=== PATIENT | female | born 1995 | race Caucasian/White ===

== ENCOUNTER 2020-09-29 10:22 | Emergency (ER) | payer OTHER ==
[~2020-09-29] VITALS: Ht 160 cm; Wt 80.3 kg
[2020-09-29 10:26] VITALS: BP 132/72
--- NOTE | 2020-09-29 10:29 | NUR ---
Pt ambulated to bed 6.
== END 2020-09-29 11:27 | disposition home or self-care (01) ==
LOC: MED 10:22
DX: R20.2 Paresthesia of skin (principal); M79.601 Pain in right arm; Z88.0 Allergy status to penicillin
CPT/HCPCS: 99282

== ENCOUNTER 2022-03-10 10:24 | Emergency (ER) | payer OTHER ==
[~2022-03-10] VITALS: Ht 160 cm; Wt 84.8 kg
[2022-03-10 10:32] VITALS: BP 127/84
[2022-03-10] MEDS ORDERED: IBUPROFEN 600 MG TAB PO ONE (10:45)
--- NOTE | 2022-03-10 11:11 | NUR ---
Obtained Strep specimens, handed to TAI Gooden at bedside.
--- NOTE | 2022-03-10 11:27 | NUR ---
27 Y/O FEMALE C/O SORE THROAT X1 WEEK. DENIES ANYONE SICK HOME. PT REPORTS COUGH LAST WEEK BUT DENIES COUGH AT THIS TIME. DENIES FEVER/CHILLS. THROAT IS RED AND SWOLLEN. SPEAKING IN FULL SENTENCES, NO SIGNS OF RESP. DISTRESS. DENIES TAKING ANY MEDS AT HOME. PT REPORTS YELLOW/GREENISH PHELGM. PT A/O X4 WITH EVEN AND UNLABORED RESPIRATIONS PMH:DENIES ALLERGY:PCN
[2022-03-10] MEDS ORDERED: IBUP-2213 PO (11:45)
[2022-03-10] MEDS ORDERED: CLIN300C2 PO (11:45)
[2022-03-10] MEDS ORDERED: DEXAMETHASONE 4 MG/ML VIAL PO ONE (11:50)
[2022-03-10 12:09] VITALS: BP 115/73
--- NOTE | 2022-03-10 12:09 | NUR ---
Patient discharged with v/s stable. Written and verbal after care instructions given. Patient alert, oriented and verbalized understanding of instructions. Ambulatory with steady gait. All questions addressed prior to discharge. ID band removed. Patient advised to follow up with PMD. Rx of Clindamycin HCL and Ibuprofen given. Opportunity to ask questions provided and answered.
== END 2022-03-10 12:09 | disposition home or self-care (01) ==
LOC: MED 10:24
DX: J03.80 Acute tonsillitis due to other specified organisms (principal); Z88.0 Allergy status to penicillin
CPT/HCPCS: 87081; 99283; J1100

== ENCOUNTER 2022-08-25 11:22 | Emergency (ER) | payer OTHER ==
[~2022-08-25] VITALS: Ht 160 cm; Wt 77.1 kg
[~2022-08-25 11:22] MED LIST: CLIN300C2 PO; IBUP-2213 PO
[2022-08-25 11:39] VITALS: BP 144/75
[2022-08-25] MEDS ORDERED: ONDANSETRON 4 MG ODT PO ONE (13:30)
[2022-08-25] MEDS ORDERED: ACETAMINOPHEN 325 MG TAB PO ONE (13:30)
[2022-08-25 14:31] LABS: APPEARANCE,URINE SL CLOUDY (CLEAR); BILIRUBIN,URINE NEGATIVE (NEGATIVE); BLOOD, URINE TRACE-I (NEGATIVE); COLOR,URINE YELLOW (YELLOW); LEUKOCYTE ESTERASE ,URINE 1+ (NEGATIVE); NITRITE, URINE NEGATIVE (NEGATIVE); PH,URINE 5.5 (5.0-9.0); UGLUCOSE NEGATIVE (NEGATIVE)
[2022-08-25 14:47] LABS: OTHER CASTS, URINE None Seen /LPF (None Seen)
[2022-08-25] MEDS ORDERED: KETOROLAC 30 MG/ML VIAL IM ONE (15:15)
[2022-08-25] MEDS ORDERED: NITROFURANTOIN 100 MG CAP PO SCH (15:15)
[2022-08-25] MEDS ORDERED: ACET-10509 PO (15:18)
[2022-08-25] MEDS ORDERED: IBUP-2213 PO (15:18)
[2022-08-25] MEDS ORDERED: NITR100C7 PO (15:20)
[2022-08-25 15:34] VITALS: BP 131/83
--- NOTE | 2022-08-25 15:38 | NUR ---
Patient discharged with v/s stable. Written and verbal after care instructions ABOUT UTI AND MIGRAINE given and explained. Patient alert, oriented and verbalized understanding of instructions. Ambulatory with steady gait. All questions addressed prior to discharge. ID band removed. Patient advised to follow up with PMD. Rx of TYLENOL, MOTRIN, MACROBID given. Patient educated on indication of medication including possible reaction and side effects. Opportunity to ask questions provided and answered.
== END 2022-08-25 15:38 | disposition home or self-care (01) ==
LOC: MED 11:22
DX: G43.909 Migraine, unspecified, not intractable, without status migrainosus (principal); N39.0 Urinary tract infection, site not specified
CPT/HCPCS: 81001; 81025; 87086; 96372; 99284; J1885; Q0162

== ENCOUNTER 2023-02-22 07:45 | Emergency (ER) | payer OTHER ==
[~2023-02-22] VITALS: Ht 160 cm; Wt 84.4 kg
[~2023-02-22 07:45] MED LIST changes: +ACET-10509 PO; +NITR100C7 PO
[2023-02-22 08:08] VITALS: BP 134/86; PULSE 86; RESP 18; TEMP 98.8; O2SAT 99
--- NOTE | 2023-02-22 08:14 | NUR ---
PT AMBULATED TO BED 9
--- NOTE | 2023-02-22 08:23 | NUR ---
MD BOWMAN AT BEDSIDE FOR EVALUATION
[2023-02-22] MEDS ORDERED: DEXAMETHASONE 10 MG/ML VIAL PO ONE (08:40)
[2023-02-22] MEDS ORDERED: ACETAMINOPHEN EXTRA STRENGTH 500 MG TAB PO ONE (08:40)
[2023-02-22] MEDS ORDERED: KETOROLAC 30 MG/ML VIAL IM ONE (08:40)
[2023-02-22] MEDS ORDERED: ACET-9234 PO (09:58)
[2023-02-22 10:08] VITALS: BP 109/79; PULSE 74; RESP 17; O2SAT 98
--- NOTE | 2023-02-22 10:09 | NUR ---
Patient discharged with v/s stable. Written and verbal after care instructions given and explained. Patient verbalized understanding. Ambulatory with steady gait. All questions addressed prior to discharge. Advised to follow up with PMD.
== END 2023-02-22 10:09 | disposition home or self-care (01) ==
LOC: MED 07:45
DX: G43.909 Migraine, unspecified, not intractable, without status migrainosus (principal); Z79.899 Other long term (current) drug therapy; Z79.2 Long term (current) use of antibiotics; Z79.1 Long term (current) use of non-steroidal anti-inflammatories (NSAID); Z88.0 Allergy status to penicillin
CPT/HCPCS: 81025; 96372; 99283; J1100; J1885

== ENCOUNTER 2023-04-10 17:01 | Emergency (ER) | payer OTHER ==
[~2023-04-10] VITALS: Ht 160 cm; Wt 84.4 kg
[~2023-04-10 17:01] MED LIST changes: +ACET-9234 PO
[2023-04-10 17:19] VITALS: BP 133/87; PULSE 89; RESP 18; TEMP 92.2; O2SAT 98
[2023-04-10 19:10] LABS: BASOPHILS % (AUTO) 0.4 % (0.0-2.0); EOSINOPHILS # (AUTO) 0.1 K/uL (0-0.4); EOSINOPHILS % (AUTO) 0.8 % (0.0-4.0); HEMOGLOBIN 12.4 g/dL (12.0-16.0); LYMPHOCYTES # (AUTO) 2.1 K/uL (2.5-16.5); LYMPHOCYTES % (AUTO) 18.3 % (20.5-51.1); MEAN CORPUSCULAR HEMOGLOBIN 28 pg (27-31); MEAN CORPUSCULAR HGB CONC 33 g/dL (33-37); MEAN CORPUSCULAR VOLUME 84.8 fL (80-94); MONOCYTES # (AUTO) 0.5 K/uL (0.8-1.0); MONOCYTES % (AUTO) 4.2 % (1.7-9.3); NEUTROPHILS # (AUTO) 8.6 K/uL (1.8-7.7); NEUTROPHILS % (AUTO) 76.3 % (42.2-75.2); PLATELET COUNT (AUTO) 296 K/uL (140-450); RED BLOOD CELL COUNT(AUTO) 4.36 MIL/uL (4.20-5.40); RED CELL DISTRIBUTION WIDTH 12.9 % (11.6-13.7); WHITE BLOOD COUNT (AUTO) 11.3 K/uL (4.8-10.8)
[2023-04-10 19:21] LABS: CALCIUM 9.1 mg/dL (8.5-10.1); CREATININE 0.6 mg/dL (0.6-1.3)
[2023-04-10 21:17] VITALS: BP 118/76; PULSE 78; RESP 18; TEMP 98; O2SAT 98
== END 2023-04-10 21:00 | disposition home or self-care (01) ==
LOC: MED 17:01
DX: R25.1 Tremor, unspecified (principal); Z88.0 Allergy status to penicillin; Z79.899 Other long term (current) drug therapy; Z98.890 Other specified postprocedural states
CPT/HCPCS: 36415; 80048; 82948; 84484; 85025; 93005; 99284